=== PATIENT | female | born 1950 | race African-American/Black ===

== ENCOUNTER 2016-12-12 17:50 | Inpatient (IN) ==
[2016-12-12] MEDS ORDERED: LASIX IV SCH (19:15)
--- NOTE | 2016-12-12 20:03 | Diag Imaging Result Doc PS360 ---
EXAM: CHEST-2 VIEWS INDICATION: SOB TECHNIQUE: 2 views COMPARISON: None. FINDINGS: There is suggestion of mild bronchiectasis of the medial right lung base. The lungs are grossly clear. There is no discrete pleural fluid collection or pneumothorax. The cardiac silhouette is mildly prominent. Central vasculature is unremarkable. IMPRESSION: Questionable mild bronchiectasis at the medial right lung base and mild cardiomegaly. No definite acute pathology, otherwise. Electronically signed by Toby Denson 12/12/2016 8:01 PM
[2016-12-12 20:28] LABS: HEMATOCRIT 24.4 % (37.0-47.0); HEMOGLOBIN 6.5 g/dL (12.0-16.0); MCH 19.3 PG (27-31); MCHC 26.6 g/dL (33-37); MCV 72.6 FL (81-99); MPV 10.8 FL (7.4-10.4); RBC 3.36 XMIL (4.2-5.4)
[2016-12-12 20:33] LABS: CALCIUM 9.8 mg/dL (8.8-10.2)
[2016-12-12 20:34] LABS: IRON SATURATION 6 %; TIBC 456 ug/dL; TOTAL IRON 27 ug/dL (49-151); UNBOUND IRON 429 ug/dL (112-346)
[2016-12-12] MEDS ORDERED: NS 500 ML ONE (21:27)
--- NOTE | 2016-12-12 22:07 | HISTORY AND PHYSICAL ---
CHIEF COMPLAINT: Abnormal lab values. HISTORY OF PRESENT ILLNESS: The patient had been seen in my office on 12/05 for annual exam. Post laboratory workup, patient had hematocrit 21, MCV is low. Baseline CBC on 05/27/2016, hematocrit 39, platelets 242,000. Ferritin was low. Iron binding capacity is high. Iron is low. The patient has significant declining of hematocrit for the last few months with hypochromic microcytic anemia due to iron deficiency. Patient was given Hemoccult stools. Brought back today. All 3 were positive. She has been hospitalized basically for iron infusion, blood transfusion and further workup. Upon questioning, patient denies of any symptoms and also she has been suffering from early dementia. Patient was accompanied by the daughter. As per the history patient was seen by Dr. Simms in 2014 for colonoscopy. It has been reported EGD showed some chronic gastritis. Anyhow, we will follow up on orthostatic. PAST MEDICAL HISTORY: Early dementia, mini-mental exam 22/13. Type 2 diabetes. Hypertension. Acid reflux disease. Hyperlipidemia. Vitamin D deficiency. Lipoma in the left forearm. PAST SURGICAL HISTORY: Tubal ligation. Colonoscopy [address] Smims. MEDICINES: Aspirin 80 mg daily, Crestor 40 daily. Icar C Plus 1 tablet daily. Metoprolol 25 daily. Norvasc 10 mg daily. Prilosec 40 daily. Vitamin D 2000 units daily. ALLERGIES: Aricept due to nausea, vomiting and diarrhea. Lisinopril, cough. 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 No alcohol. FAMILY HISTORY: Father of COPD at 98. Mom of a heart attack at 78. HEALTH MAINTENANCE: influenza vaccine 2011, pneumococcal vaccine 2016. Shingles vaccine 2014. Mammography 12/2015. DEXA scan August 2012. Pap smear 2010. Colonoscopy November 2014. REVIEW OF SYSTEMS: HEENT: No headache. No vision problem. No earache. No sore throat. Neck: No goiter. No lymphadenopathy. No bruit. Cardiopulmonary: No chest pain, shortness of breath, PND, orthopnea. GI: No nausea, vomiting, abdominal pain. No melena. No swelling of feet. No joint pain. Neurologic: No focal symptoms or weakness. PHYSICAL EXAMINATION: VITAL SIGNS: Stable. 5 feet 4, 150 pounds. HEENT: Atraumatic, normocephalic. Pupils equal, react to light. Slightly pale. NECK: Supple. No lymphadenopathy. No goiter. CHEST: Bilateral air entry. No rales, no wheezing. HEART: Sounds are regular. ABDOMEN: Belly is soft, nontender. Good bowel sounds. No masses palpable. EXTREMITIES: No peripheral edema, cyanosis. NEUROLOGIC: No obvious neurological deficits. LABORATORY: Hemoccult x3 positive. CBC, repeat hemoglobin 6.5, hematocrit 24, MCV 72. SMA7 is normal. Creatinine 1.2. ASSESSMENT AND PLAN: A 66-year-old female, admitted to the hospital with symptomatic anemia. Previous gastrointestinal workup was negative in 2015. Heme-positive stools. Hemodynamically stable. Transfuse a unit of blood as well as iron infusion. Dr. Simms consult in the morning. If she is stable, will be arranged as an outpatient, EGD and colonoscopy. We will reconcile home medications. cc: Abner See MD
[2016-12-13 06:44] LABS: BASO% 0.9 % (0.0-0.8); EOS# 0.11 X1000 (0.0-0.7); EOS% 1.9 % (0.0-10.0); HEMATOCRIT 30.2 % (37.0-47.0); HEMOGLOBIN 8.5 g/dL (12.0-16.0); IMM GRAN# 0.02 X1000 (0.0-0.04); IMM GRAN% 0.3 % (0.0-0.5); LYMPH# 1.69 X1000 (1.2-3.4); LYMPH% 29.5 % (20.5-51.1); MANUAL DIFF NEEDED? YES; MCH 20.8 PG (27-31); MCHC 28.1 g/dL (33-37); MCV 73.8 FL (81-99); MONO# 0.55 X1000 (0.11-0.59); MONO% 9.6 % (1.7-9.3); MPV 10.4 FL (7.4-10.4); NEUT% 57.8 % (42.2-75.2); PLT 415 X1000 (130-400); RBC 4.09 XMIL (4.2-5.4)
[2016-12-13 07:03] LABS: EOS 4 % (1-10); LYMPHS 22 % (21-51); MONO 8 % (1-9)
[2016-12-13 07:04] LABS: POTASSIUM 3.5 mmol/L (3.5-5.1)
[2016-12-13 07:05] LABS: HYPOCHROM 2+; TARGET CELLS 1+
[2016-12-13] MEDS ORDERED: INJECTAFER IV ONE (07:53)
[2016-12-13 08:36] VITALS: BP 142/68
[2016-12-13] MEDS ORDERED: INJECTAFER 750 MG in NS 250 ML IV ONE (09:00)
--- NOTE | 2016-12-14 19:39 | DISCHARGE SUMMARY ---
ADMISSION DATE: 12/12/2016 DISCHARGE DATE: 12/13/2016 DISCHARGING DIAGNOSIS: Symptomatic anemia with heme-positive stool stable hemodynamics. SECONDARY DIAGNOSIS: 1. Mild dementia. 2. Type 2 diabetes. 3. Hypertension. 4. Acid reflux disease. 5. Hyperlipidemia. 6. Vitamin D deficiency. 7. Lipoma of the left forearm. PROCEDURES: 1. Transfusion of 1 unit of packed RBCs. 2. Iron infusion. CONSULT: Dr. Simms. BRIEF HISTORY: Please see the H and P that was done on 12/12/2016. In brief she is a 66-year-old female was found to have abnormal lab values during routine annual exam. Hematocrit was 22. MCV is low. It is consistent with iron deficiency anemia. Patient had a 3 heme-positive stools. She was hemodynamically stable. She had a workup done by Dr. Simms in November 2014. She was admitted to the hospital with IV iron infusion and 1 unit of packed RBCs and follow up hematocrit was 31. She was hemodynamically stable with no active signs of bleeding noted. In light of negative workup recently I did discuss with the patient will go home, continue on iron replacement therapy, follow up in my office as well as Dr. Simms next week. If EGD, colonoscopy is negative consider capsule endoscopy. LABS: CBC, white cell count 5.7, hematocrit 30, platelet count 415,000. SMA 7 was normal. Creatinine 1.1. DISCHARGE INSTRUCTIONS: Crestor 40 mg daily, Prilosec 40 daily, metoprolol 25 daily, vitamin D 1000 units daily, amlodipine 10 daily, Icar-C Plus 1 tablet daily and follow up in my office next week. cc: Balwinder Simms MD
== END 2016-12-13 12:29 | disposition home or self-care (01) ==
LOC: DIRADM 17:50 → 3N 18:29
PROVIDERS: ADMIT Internal Medicine; ATTEND Internal Medicine

== ENCOUNTER 2019-04-12 08:32 | Inpatient (IN) ==
--- NOTE | 2019-04-12 08:59 | PROVIDER DOCUMENTATION ---
HPI-Abdominal Pain/GI Problem - General Chief Complaint: Rectal Bleeding Stated Complaint: BLOOD IN STOOL Time Seen by Provider: 04/12/19 08:33 Source: family (daughter at bedside) Allergies/Adverse Reactions: Patient Allergies Allergy/AdvReac Type Severity Reaction Status Date / Time No Known Allergies Allergy Verified 12/12/16 19:29 Home Medications: Home Medication List Medication Instructions Recorded Confirmed Last Taken Type Amlodipine Besylate 10 mg PO DAILY 12/12/16 04/13/19 04/11/19 History 10mg Metoprolol Tartrate 25 mg PO DAILY 12/12/16 04/13/19 04/11/19 History 25mg Omeprazole 40 mg PO DAILY 12/12/16 04/13/19 04/11/19 History 40mg - History of Present Illness-ABD Nature of Presenting Problems: 69 YO F pmh for dementia presents with daughter for c/o BRBPR since x 4 days. Pt daughter states she has seen blood fill the toilet. She has had rectal bleeding before and has required blood transfusions. Pt is altered at baseline. Denies any abdominal pain currently. Review of Systems - Adult - REVIEW OF SYSTEMS - ADULT ROS:: ROS per family Constitutional: denies: chills, fever Eyes: reports: no symptoms reported Ears, Nose, Mouth & Throat: reports: no symptoms reported Cardiovascular: denies: chest pain, edema, syncope Respiratory: denies: cough, shortness of breath, wheezing Gastrointestinal: reports: see HPI, abdominal pain, rectal bleeding. denies: nausea, vomiting Musculoskeletal: reports: no symptoms reported Integumentary: reports: no symptoms reported Neurological: reports: no symptoms reported Endocrine: reports: no symptoms reported Past History - Adult - PAST MEDICAL HISTORY-ADULT Review of Records: reports: Old Records Reviewed, Social history reviewed & non- contributory. Major Childhood Illnesses: reports: denies history Cardiovascular: reports: HTN Respiratory: reports: denies history Gastrointestinal: reports: GERD Genitourinary: reports: denies history Musculoskeletal: reports: denies history Psychiatric: reports: other (dementia) - PRIOR SURGERIES/PROCEDURES Surgical/Procedure History: reports: other (hemorrhoid resection) - FAMILY HISTORY Family History: reviewed, not pertinent - SOCIAL HISTORY Smoking: denies Substance Use: denies Living Situation: alone Physical Exam-General - PHYSICAL EXAM-ADULT Initial Vital Signs Reviewed: Yes - CONSTITUTIONAL General Appearance: alert - EYES Eyes: pale conjunctivae - HEAD, EARS, NOSE, MOUTH & THROAT HENMT: normocephalic/atraumatic, other (dry membranes) - NECK Neck: non-tender, supple - RESPIRATORY Respiratory: lungs clear, normal breath sounds, no pleuratic chest pain - CARDIOVASCULAR Cardiovascular: regular rate, rhythm, no edema - GASTROINTESTINAL (ABDOMEN) Abdominal Exam: normal bowel sounds, non tender, soft. negative: distended, guarding, rebound, tenderness, hernia, mass - GENITOURINARY Rectal Exam: normal rectal tone, blood streaked stool. negative: black stool, decreased tone, hemorrhoids, mass, tenderness - MUSCULOSKELETAL Back Exam: no CVA tenderness Extremity: normal range of motion, normal gait, normal inspection, no pedal edema - SKIN Integumentary: other (pale) - NEUROLOGIC Neurologic: grossly normal - PSYCHIATRIC Psych/Mental Status: disoriented x 3 Progress - PLAN OF CARE/RESULTS Progress/Plan/Lab Results: Vital Signs - 8 hr 04/12/19 08:34 Temperature 98.6 F Pulse Rate 78 Respiratory Rate 20 Blood Pressure 101/55 O2 Sat by Pulse Oximetry 100 Orders Category Date Time Status Cardiac Monitoring DIRECTED Care 04/12/19 08:35 Active Saline Loc NOW Care 04/12/19 08:35 Active CBC WITH ELECTRONIC DIFF [HEME] Stat Lab 04/12/19 08:35 Uncollected COMPREHENSIVE METABOLIC PANEL [CHEM] Stat Lab 04/12/19 08:35 Uncollected MAGNESIUM [CHEM] Stat Lab 04/12/19 08:35 Uncollected TSH Stat Lab 04/12/19 08:35 Uncollected TYPE & SCREEN [BBK] Stat Lab 04/12/19 08:35 Uncollected Result Diagrams: 04/15/19 06:08 04/15/19 06:08 - REASSESSMENT Reassessment #1 Time Reassessed: 10:40 Status: unchanged (feccal occult positive, hemoglobin 5. will start transfusion, plan for admission.) Reassessment #2 Time Reassessed: 10:57 Status: worsening (pt c/o abdominal pain, will give morphine, plan for admit) - CT/MRI 1 CT Study: Abdomen Impression: See EMR Report (CT ABDOMEN/PELVIS W/O CONTRAST - 04/12/2019 INDICATION: BRBPR, abd pain COMPARISON: None FINDINGS: Anemia is present. The lung bases are clear of infiltrate. There is a small hiatal hernia. There is an ill-defined hypodense mass in the lateral right lobe of the liver. This measures about 2.6 x 2 cm. Tiny calcification in the left renal hilum is nonspecific, either a 1 mm stone or vascular calcification. Indeed there is very dense vascular calcification throughout the abdominal aorta and its branches. There is significant patient motion artifact. There is diffuse constipation throughout the colon. There is either some adherent stool or a polypoid mass in the lower rectum extending nearly to the anus. Urinary bladder and uterus are normal. Ovaries appear normal. No free air or free fluid. There are moderate degenerative changes of the spine. No acute or suspicious bony lesion. IMPRESSION: 1. Questionable mass versus adherent stool in the rectum and anus. Examination recommended. 2. Indeterminate but suspicious mass in the liver. 3. Significant constipation. 4. Severe vascular disease. Cardiomegaly. Anemia. This exam was performed using automated exposure control, adjustment of mA or kV according to patient size, and/or use of iterative reconstruction technique Electronically signed by Monster Pedroza 04/12/2019 10:06 AM) - CONSULTS/PCP/HOSPITALIST Notification #1 *Consult/PCP/Hospitalist*: Dr. See Time Discussed: 11:03 Consult Disposition: Admit Departure - Departure Date of Disposition Decision: 04/12/19 Time of Disposition Decision: 10:40 DIAGNOSIS: Anemia, Acute blood loss anemia, Abdominal pain, Rectal bleeding Disposition: ADMITTED INPATIENT 09 Certified Medical Emergency: Emergent Condition: Stable - Critical Care Note This patient required my direct & personal management of CC.: No Attestation - Physician/ BEBETO Attestation The physician spent face to face time with patient:: Yes Advanced Practice Provider documentation review:: Supervising physician onsite and consulted in the evaluation and care of this patient. The physician did have a face to face encounter with the patient.
--- NOTE | 2019-04-12 10:09 | Diag Imaging Result Doc PS360 ---
CT ABDOMEN/PELVIS W/O CONTRAST - 04/12/2019 INDICATION: BRBPR, abd pain COMPARISON: None FINDINGS: Anemia is present. The lung bases are clear of infiltrate. There is a small hiatal hernia. There is an ill-defined hypodense mass in the lateral right lobe of the liver. This measures about 2.6 x 2 cm. Tiny calcification in the left renal hilum is nonspecific, either a 1 mm stone or vascular calcification. Indeed there is very dense vascular calcification throughout the abdominal aorta and its branches. There is significant patient motion artifact. There is diffuse constipation throughout the colon. There is either some adherent stool or a polypoid mass in the lower rectum extending nearly to the anus. Urinary bladder and uterus are normal. Ovaries appear normal. No free air or free fluid. There are moderate degenerative changes of the spine. No acute or suspicious bony lesion. IMPRESSION: 1. Questionable mass versus adherent stool in the rectum and anus. Examination recommended. 2. Indeterminate but suspicious mass in the liver. 3. Significant constipation. 4. Severe vascular disease. Cardiomegaly. Anemia. This exam was performed using automated exposure control, adjustment of mA or kV according to patient size, and/or use of iterative reconstruction technique Electronically signed by Monster Pedroza 04/12/2019 10:06 AM
[2019-04-12 10:34] LABS: BASO# 0.07 X1000 (0.0-0.2); BASO% 1.4 % (0.0-0.8); EOS# 0.02 X1000 (0.0-0.7); EOS% 0.4 % (0.0-10.0); HEMATOCRIT 18.2 % (37.0-47.0); LYMPH# 0.82 X1000 (1.2-3.4); LYMPH% 16.3 % (20.5-51.1); MCH 19.7 PG (27-31); MCHC 27.5 g/dL (33-37); MCV 71.7 FL (81-99); MONO# 0.24 X1000 (0.11-0.59); MONO% 4.8 % (1.7-9.3); MPV 10.7 FL (7.4-10.4); NEUT# 3.88 X1000 (1.4-6.5); NEUT% 77.1 % (42.2-75.2); PLT 426 X1000 (130-400); RBC 2.54 XMIL (4.2-5.4); RDW 17.7 % (11.5-14.5); WBC 5.03 X1000 (4.8-10.8)
[2019-04-12 10:44] LABS: ALB/GLOB RATIO 1.9; ALBUMIN 4.1 g/dL (3.5-5.0); CALCIUM 9.7 mg/dL (8.8-10.2); CREATININE 1.6 mg/dL (0.5-0.9); MAGNESIUM 2.1 mg/dL (1.5-2.7); TOTAL BILIRUBIN 0.18 mg/dL (0.20-1.00); TOTAL PROTEIN 6.3 g/dL (6.3-8.3)
[2019-04-12] MEDS: MORPHINE IV ONE ×2 (10:53→11:05)
[2019-04-12] MEDS ORDERED: NS 1,000 ML IV ONE (11:04)
[2019-04-12] MEDS ORDERED: MORPHINE IV PRN (11:04)
[2019-04-12] MEDS ORDERED: TYLENOL PO PRN (11:07)
[2019-04-12 11:09] LABS: INR 1.04; PROTIME 13.7 Seconds (11.0-16.0)
[2019-04-12 11:10] LABS: PTT 24.7 Seconds (22.3-41.8)
[2019-04-12 11:21] LABS: LYMPHS 14 % (21-51); MONO 12 % (1-9); SEGS 74 % (42-75)
[2019-04-12 11:22] LABS: HYPOCHROM 2+; MICROCYTOSIS 2+
[2019-04-12 14:18] LABS: BILIRUBIN URINE NEGATIVE (NEGATIVE); BLOOD URINE NEGATIVE (NEGATIVE); COLOR YELLOW; GLUCOSE URINE NEGATIVE (NEGATIVE); KETONE URINE TRACE mg/dL (NEGATIVE); LEUKOCYTES URINE LARGE (NEGATIVE); NITRITE URINE NEGATIVE (NEGATIVE); PROTEIN URINE NEGATIVE (NEGATIVE); SP GRAVITY URINE 1.015; TURBIDITY URINE HAZY (CLEAR); URINE SOURCE CLEAN CATCH; UROBILINOGEN URINE NORMAL (NORMAL)
[2019-04-12] MEDS ORDERED: NS 50 ML IV SCH (14:30)
[2019-04-12 14:36] LABS: UR EPITHELIAL CELLS <10 /HPF (<10); URINE BACTERIA NEGATIVE /HPF; URINE RBC <10 /HPF (<10)
[2019-04-12] MEDS: ATIVAN IV PRN (15:31)
[2019-04-12] MEDS: NS 500 ML IV SCH (15:32)
[2019-04-12 15:43] LABS: URINE YEAST NONE SEEN
[2019-04-12 15:44] LABS: URINE CASTS NONE SEEN; URINE CRYSTALS NONE SEEN
[2019-04-12] MEDS: HALDOL IV PRN (17:19)
[2019-04-12] MEDS: SEROQUEL PO SCH (21:23)
--- NOTE | 2019-04-13 02:02 | HISTORY AND PHYSICAL ---
CHIEF COMPLAINT: Rectal bleeding since . HISTORY OF PRESENT ILLNESS: She is a 69-year-old female with dementia, was brought into the emergency room with bleeding per rectum for the last 4 days. The patient was profoundly anemic. She has intermittent GI bleeding since 2016. The patient is well known to Dr. Simms's group. In between she was admitted in [place] in October of this year. She did receive 2 units of packed RBCs. She was seen by blueprint engineer as well as a general surgeon. It has been reported she has a large hemorrhoid and banding was done. Subsequently, she was also seen by Dr. Law, and in the emergency room she has a hemoglobin 5 g. She has been admitted to the hospital for occult GI bleeding off and on for the last 2 years. She had been seen before by 2 different gastroenterologists. She is requiring blood transfusion, currently receiving 2nd unit of packed RBCs. She is also agitated and requiring some sedation. A GI consult was obtained. As a result a hospital admission was warranted. PAST MEDICAL HISTORY: Benign lipoma in the left forearm, dementia, mini-mental score 22/30, type 2 diabetes, hyperlipidemia, hypertension, acid reflux disease, occult gastrointestinal bleeding, iron deficiency anemia, vitamin D deficiency. PAST SURGICAL HISTORY: Hemorrhoidectomy, tubal ligation. MEDICATIONS: Amlodipine 10 daily, vitamin D3 1000 units daily, metoprolol 25 daily, Prilosec 40 daily, Crestor 40 daily, Icar-C Plus 1 tablet daily. ALLERGIES: Reported to lisinopril - cough. Aricept - nausea, vomiting, diarrhea. SOCIAL HISTORY: She is , 3 children. 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 No smoking. No alcohol. Living in [place]. FAMILY HISTORY: Father of COPD. Mom of heart attack. HEALTH MAINTENANCE: Flu vaccine was declined. Pneumococcal in 2017, shingles in 2014. Last mammography in March of 2017. DEXA scan i August of 2012. Colonoscopy EGD in [address] Simms, in October [address] Santiago in [facility] in [place]. REVIEW OF SYSTEMS: The patient is extremely agitated, and some abdominal discomfort and dizziness upon standing. No headaches. No neck pain. No goiter.Cardiopulmonary: No chest pain, shortness of breath, PND, orthopnea. GI: Upper abdominal pain, bleeding per rectum. Extremities: No swelling of legs. No joint pain. Neurologic: No focal symptoms or weakness. PHYSICAL EXAMINATION: Temperature is 97 degrees, pulse is 73. Hemodynamics are stable. HEENT: Atraumatic, normocephalic. Pupils are equal, reactive to light. Slightly pale. NECK: Supple. CHEST: Bilateral air entry. HEART: Sounds are regular. ABDOMEN: Soft, nontender. Good bowel sounds. No signs of peritonitis. EXTREMITIES: No peripheral edema or cyanosis. NEUROLOGIC: No obvious neurological deficits. LABORATORY DATA: CBC: White cell count 5, hematocrit 18, platelets 426,000. PT 13, INR 1.0, PTT 24, SMA 7: Sodium 144, potassium 4, BUN 15, creatinine 1.6. LFTs were normal. Urinalysis, possible UTI. IMAGING: CT scan of the abdomen and pelvis, small hiatal hernia noted, ill-defined hypodense mass in the lateral lobe of the liver about 2.6 cm. Diffuse constipation throughout the colon. ASSESSMENT AND PLAN: 1. This is a 69-year-old female basically admitted for symptomatic anemia, this is the third time since 2017. 2. Previous colonoscopy is negative. Transfusion as needed., CBC and CMP in the morning. 3. Creatinine 1.6. Follow up. 4. Abnormal CT. We will review the radiologist. 5. Dr. Clements consulted GI. 6. Agitation. Will use Ativan, Haldol and Seroquel as needed, and slowly reconcile home medications. Will get orthostatic blood pressure and we will follow up. cc: Abner See MD
[2019-04-13 05:35] LABS: BASO# 0.05 X1000 (0.0-0.2); EOS# 0.08 X1000 (0.0-0.7); EOS% 1.6 % (0.0-10.0); HEMATOCRIT 29.6 % (37.0-47.0); LYMPH# 1.66 X1000 (1.2-3.4); LYMPH% 32.3 % (20.5-51.1); MCH 22.4 PG (27-31); MCHC 30.4 g/dL (33-37); MCV 73.8 FL (81-99); MONO# 0.37 X1000 (0.11-0.59); MONO% 7.2 % (1.7-9.3); MPV 10.4 FL (7.4-10.4); NEUT# 2.98 X1000 (1.4-6.5); NEUT% 57.9 % (42.2-75.2); PLT 378 X1000 (130-400); RBC 4.01 XMIL (4.2-5.4); RDW 18.1 % (11.5-14.5); WBC 5.14 X1000 (4.8-10.8)
[2019-04-13 06:02] LABS: CALCIUM 8.9 mg/dL (8.8-10.2); CREATININE 1.1 mg/dL (0.5-0.9); POTASSIUM 3.5 mmol/L (3.5-5.1)
[2019-04-13] MEDS: HALDOL IV PRN (08:09)
[2019-04-13] MEDS: SEROQUEL PO SCH ×3 (08:10→20:41)
[2019-04-13] MEDS ORDERED: SODIUM CHLORIDE 0.9% INJ SCH (13:15)
--- NOTE | 2019-04-13 13:30 | GASTROENTEROLOGY CONSULTATION ---
DATE: 04/13/2019 REASON FOR CONSULT: GI bleed. HISTORY OF PRESENT ILLNESS: Ms. Perera is a 69-year-old female with history of dementia, who came to the ER with rectal bleeding, which has been going on for the last 4 days onwards. The patient was anemic. Her hemoglobin and hematocrit on admission were 5.0 and 18.2. Patient has so far received 2 units of packed red blood cells. Her hemoglobin today is 9.0 and 29.6. The patient's occult blood was positive. Family mentioned that she started having this bleeding from Friday onwards. Initially, it was bright red, and then it became dark red. The patient had symptoms of lightheadedness and abdominal pain in the upper quadrant. Denied any fever, chills or SOB. Her daughter also mentioned that she has been having this GI bleed since 2016. Patient has the history of hemorrhoids. She had an EGD/Colonoscopy done on 11/10/[address] Simms, findings were esophagitis, esophageal stricture dilation, hiatus hernia, grade III hemorrhoids and hemorrhoids band ligation was done. Rectal exam was done today, no active bleeding was noted. PAST MEDICAL HISTORY: Benign lipoma in the left forearm, dementia, type 2 diabetes, hyperlipidemia, hypertension, GERD, iron-deficiency anemia, and vitamin D deficiency. PAST SURGICAL HISTORY: Hemorrhoidectomy and tubal ligation. HOME MEDICATIONS: Omeprazole 40 mg daily, metoprolol tartrate 25 mg daily, and amlodipine besylate 10 mg daily. ALLERGIES: The patient is allergic to lisinopril and Aricept. SOCIAL HISTORY: She is , has 3 kids. She has denied any alcohol or tobacco use. FAMILY HISTORY: No significant GI malignancies. REVIEW OF SYSTEMS: As per HPI. Otherwise, 12-point review of system is negative. PHYSICAL EXAMINATION: Vital Signs: Temperature 98 degrees, pulse 74, respirations 18, blood pressure is 142/81, oxygen saturation 98% on room air. Her weight is 138 pounds. BMI is 25.2 kg/m2. General: She is alert and oriented x3. The patient has dementia, so does not remember much of the stuff. Daughter was answering questions for her. HEENT: Pale conjunctivae. No icterus. PERRL. Neck: Supple. Lungs: Clear to auscultation in the anterior alex. Cardiovascular: Regular rate and rhythm. Abdomen: Soft, nontender, nondistended. Active bowel sounds heard in all 4 quadrants. Extremities: No clubbing, no cyanosis, no edema. Pedal pulses 2+ present bilaterally. Neurological: Alert and oriented x3, has dementia. Cranial nerves II through XII are grossly intact. IMAGING AND LABORATORY DATA: WBC 5.14, RBC 4.01, hemoglobin 9.0, hematocrit 29.6, platelet count 378,000. Sodium 145, potassium 3.5, chloride 108, carbon dioxide 23, anion gap 14, BUN is 10, creatinine 1.1, glucose 79, calcium 8.9. CEA is 11.4. Abdomen and pelvis CT showed questionable mass versus adherent stool in the rectum and anus, indeterminate but suspicious mass in the liver, significant constipation, severe vascular disease, cardiomegaly, anemia. ASSESSMENT AND PLAN: Rectal bleeding Dementia Type II diabetes Hypertension GERD Gastritis Esophagitis History of Hemorrhoids PLAN: Ms. Macedo is a 69 year old female with history of dementia, GI has been consulted for rectal bleeding. We plan to do a colonoscopy tomorrow to find out the cause of her bleeding. The patient is currently receiving IV fluids normal saline @ 200 mL/hr. We will start her on GI prophylaxis Protonix 40 mg IV twice a day. Further plan of care will be based on the colonoscopy findings. Discussed the risks, benefits, and alternatives of the procedure to the patient and family, they verbalized understanding of the plan of care. We will continue to monitor her H & H and if her hemoglobin is < 7, we will transfuse PRBC's per protocol. This plan was discussed with Dr. Law. Thank you for your consult. Please call us for any further questions or concerns. Dictated by SENIA Brunner for Travis Law MD cc: Abner See MD Physician Attestation I have seen and examined the patient. I have discussed and reviewed the note by Elsa CONN and agree with findings and plan as documented. In brief, Ms. Elenita Perera is a 69 year old woman with dementia, h/o JEREL, GERD with esophagitis and stricture s/p dilation, hiatal hernia, and grade III hemorrhoids s/p banding in 11/2017 who presents with hematochezia with hgb 5.[address] shows questionable rectal mass and suspicious liver lesion as well as constipation and PAD. CEA elevated at 11.4. Will give golytely and plan for diagnostic colonoscopy to rule out malignancy. Trend H/H, transfuse prn goal hgb 7-8. Clear liquid diet. MTDD
[2019-04-13] MEDS ORDERED: GOLYTELY PO ONE (14:00)
[2019-04-13] MEDS ORDERED: ATIVAN PO ONE (16:55)
[2019-04-13] MEDS: NS 500 ML IV SCH (17:20)
[2019-04-13] MEDS: PROTONIX IV SCH (17:26)
[2019-04-14] MEDS: PROTONIX IV SCH ×2 (00:57→16:05)
--- NOTE | 2019-04-14 01:44 | PROGRESS NOTE ---
DATE: 04/13/2019 SUBJECTIVE: The patient did receive 2 units of packed RBC and I did review the CT scan findings with Dr. Vega, radiologist. She has a mass in the liver, possible mass in the colon. CEA level is high. Prior colonoscopies were negative. The patient is agitated, pulling the IV out, wants to go home. I appreciate Dr. Law's consult. OBJECTIVE: Vital signs: Temperature is 99, pulse 73, blood pressure 147/68. HEENT: Slightly pale. Chest: Clear. Heart: Sounds are regular. Abdomen: Belly is soft, nontender. No signs of active bleeding noted. INVESTIGATIONS: White cell count 5, hematocrit 29.6, platelets 378,000. Sodium 145, potassium 3.5, BUN 10, creatinine 1.1. CEA level 11.4. ASSESSMENT AND PLAN: 1. Lower gastrointestinal bleeding, abnormal CT. Status post 2 units of packed red blood cells, elevated CEA levels. NPO after midnight. Colonoscopy tomorrow. Based on that, further recommendations will be followed. Continue daily CBC, SMA-7 and also orthostatic blood pressure. 2. Agitation. We will give Seroquel and Ativan as needed. At this time, since she is active gastrointestinal bleeding, I told the family members hold the blood pressure medications and will follow up. LEVEL OF DOCUMENTATION: 25 minutes. cc: Abner See MD
[2019-04-14 05:35] LABS: BASO# 0.05 X1000 (0.0-0.2); EOS# 0.09 X1000 (0.0-0.7); EOS% 1.8 % (0.0-10.0); HEMATOCRIT 30.7 % (37.0-47.0); HEMOGLOBIN 9.2 g/dL (12.0-16.0); LYMPH# 1.33 X1000 (1.2-3.4); LYMPH% 26.5 % (20.5-51.1); MCH 22.2 PG (27-31); MCV 74.2 FL (81-99); MONO# 0.33 X1000 (0.11-0.59); MONO% 6.6 % (1.7-9.3); NEUT# 3.22 X1000 (1.4-6.5); NEUT% 64.1 % (42.2-75.2); PLT 397 X1000 (130-400); RBC 4.14 XMIL (4.2-5.4); RDW 18.3 % (11.5-14.5); WBC 5.02 X1000 (4.8-10.8)
[2019-04-14 06:01] LABS: CALCIUM 9.1 mg/dL (8.8-10.2); CREATININE 1.2 mg/dL (0.5-0.9); POTASSIUM 3.2 mmol/L (3.5-5.1)
[2019-04-14] MEDS: SEROQUEL PO SCH ×2 (08:46→20:02)
[2019-04-14] MEDS: ATIVAN IV PRN ×2 (16:19→22:11)
[2019-04-14] MEDS: NS 500 ML IV SCH (18:43)
--- NOTE | 2019-04-14 19:53 | PROGRESS NOTE ---
DATE: 04/14/2019 SUBJECTIVE: The patient is very combative, sometimes pleasantly confused, hyperactive. Unable to drink the GoLYTELY. Prep was not fully satisfactory. REVIEW OF SYSTEMS: None reported. OBJECTIVE: Temperature is 98, pulse 77, blood pressure 147/68, room air 98%.HEENT: Within normal limits. Neck: Supple. Chest: Clear. Heart sounds are regular. Belly is soft, nontender. No obvious deficits. INVESTIGATIONS: CBC: White cell count 5, hematocrit 30.7, platelets 397,000. Sodium 146, potassium 3.2, chloride 107, BUN 11, creatinine 1.2. ASSESSMENT AND PLAN: 1. Gastrointestinal bleeding, abnormal CT. Waiting for colonoscopy and will reschedule tomorrow. 2. Potassium is low. We will give some potassium IV and repeat the labs in the morning. LEVEL OF DOCUMENTATION: 25 minutes. cc: Abner See MD
[2019-04-14] MEDS: POTASSIUM CHLORIDE 20 MEQ/SWI 20 MEQ/100 ML IVPB IV SCH (21:23)
[2019-04-15] MEDS: POTASSIUM CHLORIDE 20 MEQ/SWI 20 MEQ/100 ML IVPB IV SCH (00:52)
[2019-04-15] MEDS: PROTONIX IV SCH (00:53)
[2019-04-15 07:02] LABS: BASO# 0.04 X1000 (0.0-0.2); BASO% 0.8 % (0.0-0.8); EOS# 0.09 X1000 (0.0-0.7); EOS% 1.8 % (0.0-10.0); HEMATOCRIT 29.6 % (37.0-47.0); HEMOGLOBIN 8.8 g/dL (12.0-16.0); LYMPH# 0.84 X1000 (1.2-3.4); MCH 22.1 PG (27-31); MCHC 29.7 g/dL (33-37); MCV 74.4 FL (81-99); MONO# 0.29 X1000 (0.11-0.59); MONO% 5.9 % (1.7-9.3); MPV 10.5 FL (7.4-10.4); NEUT# 3.67 X1000 (1.4-6.5); NEUT% 74.5 % (42.2-75.2); PLT 394 X1000 (130-400); RBC 3.98 XMIL (4.2-5.4); RDW 18.5 % (11.5-14.5); WBC 4.93 X1000 (4.8-10.8)
[2019-04-15] MEDS ORDERED: DIPRIVAN 1% ONE (07:08)
[2019-04-15] MEDS ORDERED: XYLOCAINE-MPF 2% ONE (07:09)
[2019-04-15] MEDS ORDERED: FENTANYL ONE (07:11)
[2019-04-15 07:21] LABS: CALCIUM 9.2 mg/dL (8.8-10.2); CREATININE 1.1 mg/dL (0.5-0.9); POTASSIUM 3.1 mmol/L (3.5-5.1)
[2019-04-15] MEDS ORDERED: POTASSIUM CHLORIDE 20 MEQ/SWI 20 MEQ/100 ML IVPB IV SCH (09:00)
--- NOTE | 2019-04-15 09:33 | ENDOSCOPY OPERATIVE NOTE ---
[facility] ENDOSCOPY OPERATIVE NOTE , PATIENT: Elenita Perera ADM DATE: MR #: [id number] : 1950 COLONOSCOPY PROCEDURE REPORT PROCEDURE DATE: 04/15/2019 SURGEON: Tim Clements MD STATUS: inpatient [employer] INST[employer]ER: Emelyn Alexander and Mayda Betts PREOPERATIVE DIAGNOSIS: The patient is a 69 yr old female here for a colonoscopy due to PROCEDURE PERFORMED: Colonoscopy, diagnostic MEDICATIONS: Per Anesthesia PREP TYPE: GoLytely
[2019-04-15] MEDS: SEROQUEL PO SCH (10:26)
[2019-04-15 12:14] VITALS: BP 145/70
--- NOTE | 2019-04-18 21:25 | DISCHARGE SUMMARY ---
ADMISSION DATE: 04/12/2019 DISCHARGE DATE: 04/15/2019 DISCHARGING DIAGNOSIS: Symptomatic anemia due to hematochezia due to hemorrhoids 3rd time. SECONDARY DIAGNOSIS: 1. Benign lipoma left forearm. 2. Moderate dementia. 3. Type 2 diabetes. 4. Hyperlipidemia. 5. Hypertension . 6. Acid reflux disease. 7. Chronic gastrointestinal bleeding . 8. Vitamin D deficiency. CONSULT: GI. PROCEDURES: EGD and colonoscopy findings are internal hemorrhoids, external hemorrhoids. Transfusion of 2 units of packed RBC. BRIEF HISTORY: Please see the H and P that was done on 04/12. In brief she is a 69-year-old female who has been admitted recurrent GI bleeding since 2017. She has multiple endoscopies consistent with hemorrhoids. Initial CT scan abdomen and pelvis showed some possible mass in the liver but etiology is not clear since the study was done without contrast. Patient was given 2 units of packed RBC. Patient was very agitated pulling the IV out. I am not able to do the CT without contrast. Colonoscopy done by Dr. Clements after [facility] showed no masses. However CA level was high and CT was abnormal. Radiologist recommended repeat CT after the creatinine comes back to normal. We were not able to do CT with contrast because the poor IV access. The patient was very anxious and agitated and wants to go home. LABS: At the time of discharge CBC, white cell count 4, hematocrit 29.6, platelets 394,000. Sodium 143, potassium 3.1, BUN 7, creatinine 1.1, glucose 85, and CEA level 11.4. TSH is normal. CT scan of the abdomen and pelvis reported questionable mass in the rectum indeterminate but suspicious mass in the liver, significant constipation. Patient was discharged due to agitation with the following instructions. Prilosec 40 daily, metoprolol 25 daily, amlodipine 10 daily, vitamin D 1000 units daily, Icar C Plus daily, refusing to take anticholinergic drugs for dementia, hydrocortisone suppositories 25 at bedtime. Discussed with the patient family will follow up in my office in [address] of the abdomen and pelvis with contrast. cc: Tim Clements MD
== END 2019-04-15 15:45 | disposition left against medical advice (07) | DRG 394 ==
LOC: ED 08:32 → 1N 11:21
PROVIDERS: ADMIT Internal Medicine; ATTEND Internal Medicine